=== PATIENT | male | born 1955 | race Caucasian/White ===

== ENCOUNTER 2018-09-12 10:57 | Emergency (ER) | payer OTHER ==
[~2018-09-12] VITALS: Ht 177.8 cm; Wt 70.3 kg
[2018-09-12 11:00] VITALS: BP 171/115
--- NOTE | 2018-09-12 11:35 | NUR ---
Patient given discharge instructions and Rx, they have confirmed that they understand the instructions. Patient ambulatory with steady gait.
== END 2018-09-12 11:46 | disposition home or self-care (01) ==
LOC: ED 11:20
DX: F41.1 Generalized anxiety disorder (principal)
CPT/HCPCS: 93005; 99284; Q0177